=== PATIENT | female | born 1960 | race Caucasian/White ===

== ENCOUNTER 2016-11-29 15:39 | Emergency (ER) | payer MEDICARE ==
[2016-11-29 15:47] VITALS: BP 137/92
[2016-11-29] MEDS ORDERED: KETOROLAC TROMETHAMINE INJ/PF 30 MG/1 ML SDV IV ONE (15:57)
[2016-11-29] MEDS ORDERED: DIPHENHYDRAMINE HCL 50 MG/ML VIAL IV ONE (15:57)
[2016-11-29] MEDS ORDERED: NORMAL SALINE 1000 ML 1,000 ML IV ONE (15:57)
[2016-11-29] MEDS ORDERED: METOCLOPRAMIDE HCL INJ/PF 10 MG/2 ML SDV IV ONE (15:57)
--- NOTE | 2016-11-29 15:57 | ER Document Report ---
ED Headache - General Chief Complaint: Headache Stated Complaint: HEADACHE Time Seen by Provider: 11/29/16 15:50 Notes: The patient is a 56-year-old female, past medical history migraines, presents with 3 days of her usual headache that is located on the right side of her head. It started gradually and has now worsened in intensity over the past 3 days and she is now having nausea and vomited twice. She denies blurry vision, numbness, tingling, weakness, abdominal pain, fevers, neck pain, back pain, chest pain or shortness of breath. TRAVEL OUTSIDE OF THE [place] IN LAST 30 DAYS: No - Related Data Allergies/Adverse Reactions: No Known Allergies Allergy (Unverified 11/29/16 15:46) Past Medical History - General Information source: Patient - Social History Smoking Status: Current Every Day Smoker Family History: Reviewed & Not Pertinent Patient has suicidal ideation: No Patient has homicidal ideation: No Renal/ Medical History: Denies: Hx Peritoneal Dialysis Review of Systems - Review of Systems Notes: REVIEW OF SYSTEMS: CONSTITUTIONAL: -fevers, -chills EENT: -eye pain, -difficulty swallowing, -nasal congestion CARDIOVASCULAR:-chest pain, -syncope. RESPIRATORY: -cough, -SOB GASTROINTESTINAL: -abdominal pain, +nausea, +vomiting, -diarrhea GENITOURINARY: -dysuria, -hematuria MUSCULOSKELETAL: -back pain, -neck pain SKIN: -rash or skin lesions. HEMATOLOGIC: -easy bruising or bleeding. LYMPHATIC: -swollen, enlarged glands. NEUROLOGICAL: -altered mental status or loss of consciousness, +headache, - neurologic symptoms PSYCHIATRIC: -anxiety, -depression. ALL OTHER SYSTEMS REVIEWED AND NEGATIVE. Physical Exam - Vital signs Vitals: Temp Pulse Resp BP Pulse Ox 98.0 F 87 18 137/92 H 98 11/29/16 15:46 11/29/16 15:46 11/29/16 15:46 11/29/16 15:46 11/29/16 15:46 - Notes Notes: PHYSICAL EXAMINATION: GENERAL: Well-appearing, well-nourished and mild acute distress. HEAD: Atraumatic, normocephalic. EYES: Pupils equal round and reactive to light, extraocular movements intact, sclera anicteric, conjunctiva are normal. ENT: nares patent, oropharynx clear without exudates. Moist mucous membranes. NECK: Normal range of motion, supple without lymphadenopathy LUNGS: Breath sounds clear to auscultation bilaterally and equal. No wheezes rales or rhonchi. HEART: Regular rate and rhythm without murmurs ABDOMEN: Soft, nontender, normoactive bowel sounds. No guarding, no rebound. No masses appreciated. EXTREMITIES: Normal range of motion, no pitting or edema. No cyanosis. NEUROLOGICAL: Cranial nerves grossly intact. Normal speech, normal gait. Normal sensory and motor exams. PSYCH: Normal mood, normal affect. SKIN: Warm, Dry, normal turgor, no rashes or lesions noted. Course - Re-evaluation Re-evalutation: Patient headache is similar to prior headaches. Do not suspect SAH, ICH or meningitis at this time. Will treat with headache cocktail and reassess patient. 11/29/16 16:45 Pt feels much better after headache cocktail and her has completely resolved. Repeat neuro exam is completely normal. Instructed her to continue anti-inflammatories to help prevent rebound headache and follow-up with her primary care physician. - Vital Signs Vital signs: Temp Pulse Resp BP Pulse Ox 98.0 F 87 18 137/92 H 98 11/29/16 15:46 11/29/16 15:46 11/29/16 15:46 11/29/16 15:46 11/29/16 15:46 Discharge - Discharge Clinical Impression: Headache Qualifiers: Headache type: unspecified Headache chronicity pattern: chronic headache Intractability: not intractable Qualified Code(s): R51 - Headache Condition: Stable Disposition: HOME, SELF-CARE Additional Instructions: HEADACHE: The physician does not feel that the headache you are experiencing has a serious underlying cause. Most headaches are due to emotional stress, with resultant muscle tension (tension headache). Occasionally, headaches are secondary to changes in the blood vessels of the scalp (vascular headache and migraine headache). Sometimes, a headache is the first symptom of another developing illness, such as a viral infection. You have no evidence of stroke, bleeding, meningitis, or other serious cause of your headache. The treatment of headaches varies with the severity and cause of the pain. Not all headaches need pain shots. In fact, there is evidence that using narcotics for headaches may make them worse in the long run. The physician will determine the therapy that's in your best interest. If you develop a fever, if the headache is different from any you've previously experienced, or if the headache progressively worsens, then call your physician at once or go to the emergency room. REGLAN (METOCLOPRAMIDE): Reglan has been prescribed. This medicine affects the stomach and intestines. It can be used to treat nausea and vomiting, to prevent reflux of stomach acid up into the esophagus, or to increase the contractions of the stomach and intestines. It is often prescribed for esophagitis, and for paralysis of the stomach in diabetics. Reglan can cause either mild restlessness or drowsiness. You should contact the doctor at once if you become extremely restless, anxious, or cannot sleep, or if you develop uncontrollable motions of the lips, tongue, or jaw. Do not take alcohol with this medicine. Do not drive or operate machinery until you have been taking this medicine long enough to know how it affects you. Call the doctor if you develop abdominal pains, lightheadedness, black stool, or blood in the stool or vomitus. USE OF DIPHENHYDRAMINE: Diphenhydramine (Benadryl) is an antihistamine and has been recommended to help treat your headache and to prevent side effects of other medications used to treat headaches. The medication can be repeated four times daily. Age Elixir (12.5 mg/tsp) 25 mg pill adult 1-2 tabs Antihistamines may cause drowsiness, especially with the first dose. Do not operate machinery or drive while under the effects of the medication. Do not combine the medication with alcohol, or with any other medication without talking to your doctor. ANTINAUSEA MEDICATION: You have been given a medication to suppress nausea and vomiting. This type of medication can be given as a shot, pill, or suppository. It will usually last for many hours. Pills and shots usually last six to eight hours, suppositories last about 12 hours. For the typical illness, only one or two doses of the medication may be necessary. Mild lightheadedness may occur. This type of medicine can cause drowsiness. Do not drive or operate dangerous machinery while under its influence. Do not mix with alcohol. See your doctor at once if you have muscle spasms or tightness, or uncontrollable motions (particularly of the neck, mouth, or jaw). Persistent vomiting or severe lightheadedness should also be evaluated by the physician. TORADOL INJECTION: You have been given an injection of ketorolac tromethamine (Toradol). This is an excellent, safe drug for pain control. It also has potent antiinflammatory action. You should have significant pain relief within about one hour. Toradol is not addicting and is non-sedating. It does not interfere with driving or work. Call or return if you develop itching, hives, shortness of breath, or rash. FOLLOW-UP CARE: If you have been referred to a physician for follow-up care, call the physician s office for an appointment as you were instructed or within the next two days. If you experience worsening or a significant change in your symptoms, notify the physician immediately or return to the Emergency Department at any time for re-evaluation. Referrals: IRWIN VALENTIN MD [ACTIVE STAFF] - Follow up as needed
== END 2016-11-29 17:11 | disposition home or self-care (01) ==
LOC: ER 15:39
DX: R51 Headache (principal); R11.2 Nausea with vomiting, unspecified; F17.200 Nicotine dependence, unspecified, uncomplicated; Z86.69 Personal history of other diseases of the nervous system and sense organs
CPT/HCPCS: 99283; 96374; 96375; J1200; J1885; J2765; J7030

== ENCOUNTER 2017-04-17 15:05 | Emergency (ER) | payer SELFPAY ==
[2017-04-17] MEDS ORDERED: MORPHINE SULFATE 10 MG/ML INJ IV ONE (16:15)
[2017-04-17] MEDS ORDERED: IPRATROPIUM/ALBUTEROL 0.5-2.5 MG/3 ML AMPUL NEB ONE (16:15)
[2017-04-17] MEDS ORDERED: NORMAL SALINE 1000 ML 1,000 ML IV ONE (16:30)
--- NOTE | 2017-04-17 16:41 | ER Document Report ---
ED General - General Chief Complaint: Hemorrhoids Stated Complaint: COLD SYMPTOMS Time Seen by Provider: 04/17/17 15:59 Mode of Arrival: Ambulatory Information source: Patient Notes: Patient complains of cough and cold symptoms for the past 4 weeks. Patient states she is coughing so hard that it is because the hemorrhoids to flare up. Patient feels like she has had hemorrhoid pain for the past 4 weeks as well. Patient does report subjective fever at home with chills. Cough has been nonproductive. Patient does smoke although states she has been trying to cut back recently. TRAVEL OUTSIDE OF THE [place] IN LAST 30 DAYS: No - HPI Onset: Other - 4 weeks Onset/Duration: Worse Quality of pain: Sharp Pain Level: 4 Associated symptoms: Nonproductive cough, Fever, Other - Rectal pain. denies: Diarrhea, Nausea, Vomiting Exacerbated by: Coughing Relieved by: Denies Similar symptoms previously: Yes Recently seen / treated by doctor: No - Related Data Allergies/Adverse Reactions: No Known Allergies Allergy (Verified 04/17/17 15:16) Past Medical History - General Information source: Patient - Social History Smoking Status: Current Every Day Smoker Chew tobacco use (# tins/day): No Frequency of alcohol use: None Drug Abuse: None Occupation: None Lives with: Family Family History: Reviewed & Not Pertinent Patient has suicidal ideation: No Patient has homicidal ideation: No Renal/ Medical History: Denies: Hx Peritoneal Dialysis Malignancy Medical History: Reports: Hx Skin Cancer Past Surgical History: Reports: Other - Skin cancer removed from face - Immunizations Hx Diphtheria, Pertussis, Tetanus Vaccination: Yes Review of Systems - Review of Systems Constitutional: Chills, Fever EENT: No symptoms reported Cardiovascular: No symptoms reported. denies: Chest pain Respiratory: Cough. denies: Short of breath Gastrointestinal: Other - Rectal pain. denies: Vomiting Genitourinary: No symptoms reported Female Genitourinary: No symptoms reported Musculoskeletal: No symptoms reported Skin: No symptoms reported Hematologic/Lymphatic: No symptoms reported Neurological/Psychological: No symptoms reported Physical Exam - Vital signs Vitals: Temp Pulse Resp BP Pulse Ox 98.3 F 100 20 160/97 H 98 04/17/17 15:17 04/17/17 15:17 04/17/17 15:17 04/17/17 15:17 04/17/17 15:17 - General General appearance: Appears well, Alert In distress: None - HEENT Head: Normocephalic, Atraumatic Eyes: Normal Conjunctiva: Normal Nasal: Normal Mouth/Lips: Normal Mucous membranes: Dry Pharynx: Normal Neck: Normal, Supple. No: Lymphadenopathy - Respiratory Respiratory status: No respiratory distress Chest status: Nontender Breath sounds: Nonproductive cough, Rhonchi Chest palpation: Normal - Cardiovascular Rhythm: Regular Heart sounds: S1 appreciated, S2 appreciated Murmur: No - Rectal Tenderness: Yes Stool: Bloody - mucopurulent bloody drainage Hemorrhoids: External, Mass - firm, tender rectal lesion to left lateral side - Back Back: Normal, Nontender - Extremities General upper extremity: Normal inspection, Normal ROM General lower extremity: Normal inspection, Normal ROM - Neurological Neuro grossly intact: Yes Cognition: Normal Quin[place] Coma Scale Eye Opening: Spontaneous [place] Coma Scale Verbal: Oriented [place] Coma Scale Motor: Obeys Commands Rachelle Coma Scale Total: 15 - Psychological Associated symptoms: Normal affect, Normal mood - Skin Skin Temperature: Warm Skin Moisture: Dry Skin Color: Normal Course - Re-evaluation Re-evalutation: 04/17/17 16:[address] Ingram who recommends surgical consultation. Consulted with Dr. Dixon who does agree to evaluate patient in the emergency department. Does not recommend any imaging studies at this time. 04/17/17 17:42 Dr. Dixon to bedside for examination, recommends outpatient follow-up for colonoscopy and further evaluation. Recommends placing patient on Flagyl and stool softeners. Patient's findings concerning for anal rectal cancer - Vital Signs Vital signs: Temp Pulse Resp BP Pulse Ox 97.6 F 82 17 135/70 H 97 04/17/17 18:24 04/17/17 18:24 04/17/17 18:24 04/17/17 18:24 04/17/17 18:24 - Laboratory Result Diagrams: 04/17/17 16:50 04/17/17 16:50 Laboratory results interpreted by me: 04/17/17 04/17/17 16:50 16:50 WBC 11.3 H Sodium 145.6 H Chloride 108 H Carbon Dioxide 21 L BUN 5 L Creatinine 0.50 L AST 86 H ALT 188 H Alkaline Phosphatase 140 H Labs- Entire Visit 04/17/17 04/17/17 16:50 16:50 WBC 11.3 H RBC 4.57 Hgb 14.3 Hct 41.8 MCV 92 MCH 31.4 MCHC 34.3 RDW 13.8 Plt Count 296 Seg Neutrophils % 58.9 Lymphocytes % 33.0 Monocytes % 5.8 Eosinophils % 1.8 Basophils % 0.5 Absolute Neutrophils 6.7 Absolute Lymphocytes 3.7 Absolute Monocytes 0.7 Absolute Eosinophils 0.2 Absolute Basophils 0.1 Sodium 145.6 H Potassium 4.2 Chloride 108 H Carbon Dioxide 21 L Anion Gap 17 BUN 5 L Creatinine 0.50 L Est GFR ( Amer) > 60 Est GFR (Non-Af Amer) > 60 Glucose 85 Calcium 9.2 Total Bilirubin 0.5 Direct Bilirubin 0.4 Indirect Bilirubin Not Reportable Neonat Total Bilirubin Not Reportable AST 86 H ALT 188 H Alkaline Phosphatase 140 H Total Protein 8.1 Albumin 4.0 - Diagnostic Test Radiology reviewed: Reports reviewed Discharge - Discharge Clinical Impression: Elevated blood pressure reading, Rectal mass, Bronchitis Condition: Stable Disposition: HOME, SELF-CARE Instructions: Bronchitis ([facility]), Growth or Mass, Pending Workup ([facility] / [facility]) Additional Instructions: Return immediately for any new or worsening symptoms Followup with your primary care provider, call tomorrow to make a followup appointment Follow-up with Dr. Dixon for further evaluation of your rectal mass. Your mass is concerning for cancer and will need additional evaluation. Call Wednesday for an appointment time. Prescriptions: Albuterol Sulfate [Ventolin Hfa] 2 puff IH Q4HP PRN #17 gm PRN Reason: Benzonatate [Tessalon Perle 100 mg Capsule] 100 mg PO Q8HP PRN #20 cap PRN Reason: Docusate Sodium [Colace] 100 mg PO BID PRN #60 capsule PRN Reason: Lidocaine HCl [Xylocaine 2% Jelly 30 ml Tube] 1 applic TOP TID PRN #30 ml PRN Reason: Metronidazole [Flagyl 500 mg Tablet] 500 mg PO TID #30 tablet Naproxen [Naprosyn 250 Nmg Tablet] 1 tab PO BID #14 tablet Forms: Elevated Blood Pressure, Smoking Cessation Education Referrals: EMORY DIXON MD [ACTIVE STAFF] - 04/19/17 [facility] [Provider Group] - 04/19/17
--- NOTE | 2017-04-17 16:54 | RADIOLOGY REPORT (SQ) ---
EXAM DESCRIPTION: CHEST PA/LAT COMPLETED DATE/TIME: 04/17/2017 4:43 pm REASON FOR STUDY: cough COMPARISON: None. EXAM PARAMETERS: NUMBER OF VIEWS: two views TECHNIQUE: Digital Frontal and Lateral radiographic views of the chest acquired. RADIATION DOSE: NA LIMITATIONS: none FINDINGS: LUNGS AND PLEURA: No opacities, masses or pneumothorax. No pleural effusion. MEDIASTINUM AND HILAR STRUCTURES: No masses or contour abnormalities. HEART AND VASCULAR STRUCTURES: Heart normal size. No evidence for failure. BONES: No acute findings. HARDWARE: None in the chest. OTHER: No other significant finding. IMPRESSION: NO SIGNIFICANT RADIOGRAPHIC FINDING IN THE CHEST. TECHNICAL DOCUMENTATION: JOB ID: [id number] [employer]- All Rights Reserved
[2017-04-17 17:13] LABS: ABSOLUTE BASOPHILS # (AUTO) 0.1 10^3/uL (0.0-0.2); ABSOLUTE EOSINOPHILS # (AUTO) 0.2 10^3/uL (0.0-0.6); ABSOLUTE LYMPHOCYTES (AUTO) 3.7 10^3/uL (0.5-4.7); ABSOLUTE MONOCYTES (AUTO) 0.7 10^3/uL (0.1-1.4); ABSOLUTE NEUT (AUTO) 6.7 10^3/uL (1.7-8.2); BASOPHILS % (AUTO) 0.5 % (0-2); EOSINOPHILS % (AUTO) 1.8 % (0-6); HEMATOCRIT 41.8 % (36.0-47.0); HEMOGLOBIN 14.3 g/dL (12.0-15.5); HGB HCT DIFFERENCE 1.1; MEAN CORPUSCULAR HEMOGLOBIN 31.4 pg (27.0-33.4); MEAN CORPUSCULAR HGB CONC 34.3 g/dL (32.0-36.0); MEAN CORPUSCULAR VOLUME 92 fl (80-97); MONOCYTES % (AUTO) 5.8 % (3-13); RED BLOOD COUNT 4.57 10^6/uL (3.72-5.28); RED CELL DISTRIBUTION WIDTH 13.8 % (11.5-14.0); SEGMENTED NEUTROPHILS % (AUTO) 58.9 % (42-78); WHITE BLOOD COUNT 11.3 10^3/uL (4.0-10.5)
[2017-04-17] MEDS ORDERED: LIDOCAINE 2% JELLY 5 ML TUBE TOP ONE (17:26)
[2017-04-17 17:32] LABS: ALANINE AMINOTRANSFERASE 188 U/L (9-52); ALKALINE PHOSPHATASE 140 U/L (38-126); ANION GAP 17 (5-19); ASPARTATE AMINO TRANSFERASE 86 U/L (14-36); BILIRUBIN,DIRECT 0.4 mg/dL (0.0-0.4); BILIRUBIN,TOTAL 0.5 mg/dL (0.2-1.3); BLOOD UREA NITROGEN 5 mg/dL (7-20); CALCIUM 9.2 mg/dL (8.4-10.2); CARBON DIOXIDE 21 mmol/L (22-30); CHLORIDE 108 mmol/L (98-107); GLUCOSE 85 mg/dL (75-110); POTASSIUM 4.2 mmol/L (3.6-5.0); SODIUM 145.6 mmol/L (137-145); TOTAL PROTEIN 8.1 g/dL (6.3-8.2)
[2017-04-17] MEDS ORDERED: DOCUSATE SODIUM 100 MG CAPSULE PO ONE (17:53)
[2017-04-17] MEDS ORDERED: METRONIDAZOLE 500 MG TABLET PO ONE (17:53)
[2017-04-17 18:26] VITALS: BP 135/70
--- NOTE | 2017-04-17 18:58 | CONSULTATION REPORT E ---
Consultation Report NAME: CHRIS BLISS : 1960 AGE: 56Y DATE: 04/17/2017 TO: EMORY YODER M.D. FROM: Inna ROMO, Requesting Physician REASON FOR CONSULTATION: Anal mass. REPORT OF CONSULTATION: The patient is a 56-year-old white female from [place] originally, now staying in the [place] area, presents to the emergency department complaining of cold symptoms and hemorrhoids. The patient is seen in the emergency department by the physician's assistant professor of sociology where the patient underwent a rectal examination and was found to have an abnormal rectal exam, specifically a mass like effect at the anal verge. Surgery is consulted. On further questioning with the patient, she denies history of anal problems, tumors, STD, or previous colonoscopy. There is no family history of colorectal or anal cancer. She does state she has had problems with hemorrhoids in the past but has never undergone treatment. She is somewhat sketchy with her recent history in terms of symptoms, but for several weeks she has been having difficulty moving her bowels, rectal bleeding, and anal pain. PAST MEDICAL HISTORY: COPD, smoking abuse, and cervical carcinoma. PAST SURGICAL HISTORY: SCCA of the face removed. MEDICATIONS: See record. ALLERGIES: None known. SOCIAL HISTORY: The patient smokes a pack of cigarettes per day. REVIEW OF SYSTEMS: As per HPI. CONSTITUTIONAL: The patient denies. CARDIOVASCULAR: The patient has chronic cough. NEUROLOGIC: The patient denies. PHYSICAL EXAMINATION: The patient is examined [facility] Room 41. GENERAL: Awake, alert, tearful. HEENT: Eyes are without icterus. Face; general examination reveals multiple scars consistent with previous facial surgery. LUNGS: Rhonchi bilaterally. HEART: Without murmur or gallop. ABDOMEN: Soft, nontender. RECTAL: The patient rolled in the left lateral decubitus position. Perianal tissue reveals several erythematous spots that may be early abscess formation. There is a mass like effect on the right lateral aspect of the anal verge protruding from the anal canal. There is some mucopurulent discharge. Lidocaine jelly 2% was placed on the anal verge. Digitalization of anal canal revealed pain and a mass on the patient's right lateral anal canal wall. There is no george obstruction but the anal canal is narrowed somewhat. IMPRESSION: 1. 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 2. Smoker. 3. Hemorrhoids, internal on the left side. 4. COPD. 5. History of cervical carcinoma. RECOMMENDATIONS: 1. The patient will need to undergo exam under anesthesia, anal canal biopsy, in conjunction with complete colonoscopy. This can be setup on an outpatient basis and we are making arrangements for her to follow up with Dr. Yoder in [facility] next week. 2. Stool softener, Colace, and fiber. 3. Flagyl 500 mg p.o. t.i.d. I have discussed the above with the primary care team. DICTATING PHYSICIAN: EMORY YODER M.D. [id number] PHY#: [id number] ID: [id number] JOB#: [id number] ACCT: [id number] cc:EMORY YODER M.D. > MTDD
== END 2017-04-17 18:26 | disposition home or self-care (01) ==
LOC: ER 15:05
DX: K62.89 Other specified diseases of anus and rectum (principal); J40 Bronchitis, not specified as acute or chronic; R50.9 Fever, unspecified; K64.8 Other hemorrhoids; R03.0 Elevated blood-pressure reading, without diagnosis of hypertension; F17.200 Nicotine dependence, unspecified, uncomplicated; J44.9 Chronic obstructive pulmonary disease, unspecified; Z85.828 Personal history of other malignant neoplasm of skin
CPT/HCPCS: 94640; 99284; 96361; 96374; 36415; 87040; 85025; 80053; 71020; J2270; J7030; J7620

== ENCOUNTER → 2017-04-30 | Outpatient (CLI) | payer MEDICARE ==
--- NOTE | 2017-04-30 15:15 | RADIOLOGY REPORT (SQ) ---
EXAM DESCRIPTION: CT ABD/PELVIS WITH IV ORAL COMPLETED DATE/TIME: 04/30/2017 1:41 pm REASON FOR STUDY: OTHER SPEC DISEASES OF ANUS AND RECTUM (K62.89) PERSONAL HX CA OF CX AND UT K62.89 OTHER SPECIFIED DISEASES OF ANUS AND RECTUM COMPARISON: None. TECHNIQUE: CT scan of the abdomen and pelvis performed with intravenous and oral contrast using arile rosalind scanning technique with dynamic intravenous contrast injection. Images reviewed with lung, soft t issue, and bone windows. Reconstructed coronal and sagittal MPR images reviewed. Delayed images for e valuation of the urinary system also acquired. All images stored on PACS. All CT scanners at this facility use dose modulation, iterative reconstruction, and/or weight based d osing when appropriate to reduce radiation dose to as low as reasonably achievable (ALARA). [facility]: Dose Right [facility]: CareDose [facility]: Dose Right [facility]: Teradose 4D [facility]: [employer] CONTRAST TYPE AND DOSE: contrast/concentration: Isovue 370.00 mg/ml; Total Contrast Delivered: 89.0 ml; Total Saline Delivered: 70.0 ml RENAL FUNCTION: BUN 5 creatinine 0.5. RADIATION DOSE: CT Rad equipment meets quality standard of care and radiation dose reduction techniq ues were employed. CTDIvol: 7.8 - 9.1 mGy. DLP: 888 mGy-cm. . LIMITATIONS: None. FINDINGS: LOWER CHEST: No significant findings. No nodules or infiltrates. LIVER: Normal size. No masses. No dilated ducts. SPLEEN: Normal size. No focal lesions. PANCREAS: No masses. No significant calcifications. No adjacent inflammation or peripancreatic fluid collections. Pancreatic duct not dilated. GALLBLADDER: Surgically absent. ADRENAL GLANDS: 1.3 cm low-attenuation lesion in the left adrenal gland. RIGHT KIDNEY AND URETER: No solid masses. No significant calcifications. No hydronephrosis or hyd roureter. LEFT KIDNEY AND URETER: No solid masses. No significant calcifications. No hydronephrosis or hydr oureter. AORTA AND VESSELS: No aneurysm. No dissection. Renal arteries, SMA, celiac without stenosis. RETROPERITONEUM: No retroperitoneal adenopathy, hemorrhage or masses. BOWEL AND PERITONEAL CAVITY: Scattered colonic diverticuli, particularly in the sigmoid colon. No ob struction. No visualized masses. No free fluid. No inflammatory changes or thickening of bowel wall. APPENDIX: Normal. PELVIS: Slightly ill-defined low-attenuation area at the right side of the anus, nonspecific. Transv erse measurements 2.8 x 3.1 cm. Minimal stranding in the perirectal fat but no focal soft tissue les ions or adenopathy. Normal bladder. No free fluid. ABDOMINAL WALL: No masses. No hernias. BONES: No significant or acute findings. OTHER: No other significant finding. IMPRESSION: 1. NONSPECIFIC ILL-DEFINED SOFT TISSUE FULLNESS IN THE RIGHT SIDE OF THE ANUS. 2. SIGMOID DIVERTICULOSIS. NO CT FINDINGS OF ACUTE DIVERTICULITIS. 3. SMALL LOW-ATTENUATION LESION IN THE LEFT ADRENAL GLAND, PROBABLY AN ADENOMA. 4. NO OTHER SIGNIFICANT OR ACUTE FINDINGS IN THE ABDOMEN OR PELVIS. TECHNICAL DOCUMENTATION: JOB ID: [id number] Quality ID # [id number]: Final reports with documentation of one or more dose reduction techniques (e.g., Au tomated exposure control, adjustment of the mA and/or kV according to patient size, use of iterative reconstruction technique) 2010 [employer]- All Rights Reserved
== END ==
LOC: RAD 12:58
PROVIDERS: ATTEND Surgery
DX: K62.89 Other specified diseases of anus and rectum (principal); Z85.41 Personal history of malignant neoplasm of cervix uteri
CPT/HCPCS: 74177

== ENCOUNTER 2017-05-06 07:48 | Day surgery (SDC) | payer MEDICARE ==
[~2017-05-06 07:48] MED LIST: EPINEPHRINE INJ 1 MG/10 ML DISP.SYRIN ONE; FLUMAZENIL INJ 0.5 MG/5 ML VIAL ONE; GLUCAGON,HUMAN RECOMB 1 MG INJ ONE; GLYCOPYRROLATE INJ 0.4 MG/2 ML VIAL ONE; NALOXONE HCL INJ/PF 0.4 MG/1 ML SDV ONE; ONDANSETRON HCL INJ/PF 4 MG/2 ML SDV ONE
[2017-05-06] MEDS: MIDAZOLAM 2 MG/2 ML INJ ONE ×5 (09:06→09:40)
[2017-05-06] MEDS: FENTANYL CITRATE INJ/PF 100 MCG/2 ML AMPUL ONE ×4 (09:08→09:49)
--- NOTE | 2017-05-06 10:26 | PDOC DISCHARGE SUMMARY ---
Discharge Summary (SDC) - Discharge Final Diagnosis: Anal canal carcinoma Date of Surgery: 05/06/17 Discharge Date: 05/06/17 Condition: Fair Treatment or Instructions: [facility] [place] [id number] POST ENDOSCOPY DISCHARGE INSTRUCTIONS 1. Diet: Start clear liquids that a regular diet as tolerated. 2. Resume all preoperative medications. All oral anticoagulants and aspirins can be resumed 24 hours after procedure. 3. If a polypectomy was performed some bleeding per rectum may occur. This should stop within 3 days. If not, please contact the office. 4. If you had a colonoscopy you may experience some bloating and delayed return of normal bowel function for several days, your regular bowel movement pattern should resume within a week. 5. Please contact [facility] at to make an appointment with Dr. Dixon for 1 to 3 weeks following procedure. 6. If you have any questions or concerns regarding your care,treatment plan or follow up, please contact our office. 7. Patient's follow-up will be predicated on the results of her endoscopic biopsies. Discharge Diet: As Tolerated Discharge Activity: Activity As Tolerated Home Care Assistance: None Needed Report the Following to Your Physician Immediately: Shortness of Breath, Increase in Pain, Fever over 101 Degrees
--- NOTE | 2017-05-06 10:31 | Operative Report ---
Operative Report DATE OF SURGERY: 05/06/17 PREOPERATIVE DIAGNOSIS: 1. Anal canal carcinoma. 2. Need for screening colonoscopy POSTOPERATIVE DIAGNOSIS: Same upper rectal polyp OPERATION: Multiple biopsies of anal canal tumor SURGEON: EMORY YODER ANESTHESIA: Moderate Sedation TISSUE REMOVED OR ALTERED: Multiple biopsies; upper rectal polyp COMPLICATIONS: None ESTIMATED BLOOD LOSS: Minimal INTRAOPERATIVE FINDINGS: See below PROCEDURE: Obtaining informed consent the patient was taken from the preoperative holding area to the main endoscopy suite where monitoring devices were attached to the patient. Plan and surgical timeout were conducted The patient was placed in the left lateral decubitus position with knees to chest. A perianal examination was performed. The findings were significant for excoriation around the anal canal; there is a large mass 4.5 cm x 3 cm on the anal verge extending on to the perianal skin in the patient's right lateral position. By rectal exam the mass extends into the anal canal approximately 4- 5 cm mostly on the patient's right lateral anal rectal wall. This area is very tender to the patient. Extensive lubrication with lidocaine jelly 2% utilized during the procedure. In addition the patient received a total of 8 mg of Versed and 200 mcg of fentanyl for relief of the pain related to the anal canal tumor during colonoscopy. The flexible adult colonoscope was advanced through the anal rectal canal, all the way to the cecum. Utilization of the cecum was achieved and the ileocecal valve, the appendiceal orifice and transillumination of the anterior abdominal wall. This was an excellent study on the well-prepped bowel. The colonoscope was withdrawn slowly and methodically checked and the mucosa carefully. There was no evidence of tumor, stricture, bleeding; the upper rectum was a small polyp which was removed with the cold forceps biopsy. Specimen retrieved and labeled as upper rectal polyp. Bleeding from the site was negligible. There were scattered sigmoid diverticuloses. The scope was slowly withdrawn through the anal rectal canal. Complete visualization of the rectum was achieved with photodocumentation. We now performed multiple cold forceps biopsies of the anal canal tumor at multiple sites specimens were sent and as anal canal tumor. Bleeding was minimal. Patient tolerated this reasonably well but again had a significant amount of pain throughout the procedure. The scope was withdrawn to the patient's anus after multiple biopsies taken. The patient tolerated the procedure well and was taken to the recovery area in stable condition Matthieu is to await results of final pathology, and refer patient to medical oncology for further management.
[2017-05-06 11:21] VITALS: BP 129/73
[2017-05-06] MEDS ORDERED: LIDOCAINE 2% JELLY 5 ML TUBE ONE (14:36)
== END 2017-05-06 11:25 | disposition home or self-care (01) ==
LOC: END 07:48
PROVIDERS: ATTEND Surgery
PROC: 0DBP8ZX Excision of Rectum, Via Natural or Artificial Opening Endoscopic, Diagnostic (ICD-10-PCS; principal; 2017-05-06 08:15)
DX: C21.1 Malignant neoplasm of anal canal (principal); K62.1 Rectal polyp; K57.30 Diverticulosis of large intestine without perforation or abscess without bleeding; J44.9 Chronic obstructive pulmonary disease, unspecified; Z79.899 Other long term (current) drug therapy; Z85.41 Personal history of malignant neoplasm of cervix uteri; Z85.828 Personal history of other malignant neoplasm of skin; F17.200 Nicotine dependence, unspecified, uncomplicated
CPT/HCPCS: 45380; 88305 ×2; J2250; J3010; J1610; J0171; J2310; J2405; J3490

== ENCOUNTER → 2017-05-30 | Outpatient (CLI) | payer MEDICARE ==
--- NOTE | 2017-06-01 11:39 | RADIOLOGY REPORT (SQ) ---
EXAM DESCRIPTION: PET CT SKULL/THIGH COMPLETED DATE/TIME: 05/30/2017 8:46 pm REASON FOR STUDY: MALIGNANT NEOPLASM OF ANUS C21.0 MALIGNANT NEOPLASM OF ANUS, UNSPECIFIED COMPARISON: CT abdomen pelvis dated 04/30/2017. RADIONUCLIDE AND DOSE: 10.0 mCi F18 FDG The route of agent administration: Intravenous FASTING BLOOD SUGAR: 102 mg/dl CONTRAST TYPE AND DOSE: No CT contrast given. TECHNIQUE: Blood glucose level was verified. Above dose of FDG was injected intravenously. 2-D seg mented attenuation correction images were obtained from the base of the skull to the midthighs. Nonc ontrast CT images were obtained for attenuation correction and fusion with emission images. CT image s were performed without oral or intravenous contrast and are not sensitive for parenchymal lesions. A series of overlapping emission PET images were obtained. Images reviewed and manipulated at [facility] work station by the radiologist. Images stored on PACS. LIMITATIONS: None. FINDINGS: HEAD AND NECK: No areas of abnormal metabolic activity in the soft tissues of the head and neck. CHEST: No areas of abnormal metabolic activity in the chest. ABDOMEN AND PELVIS: No areas of abnormal metabolic activity in the abdomen. Expected physiologic act ivity is present in the genitourinary system and bowel. There is ill-defined soft tissue in the dist al rectum extending to the anus. Maximum transverse measurement approximately 4.5 cm. SUV values ra nge from 13.45 to 17.44. There is a lymph node along the right pelvic wall just anterior to the righ t sacroiliac joint (series 3, image 203). This measures 1.5 cm. Mean SUV value 4.05. PROXIMAL LOWER EXTREMITIES: No areas of abnormal metabolic activity in the soft tissues of the lower extremities. BONES: There is generally diffuse slightly increased metabolic activity throughout the vertebral bodi es with no bony abnormalities on current or previous CT scan. ADDITIONAL CT FINDINGS: No additional significant findings on the noncontrast CT images. OTHER: No other significant findings. IMPRESSION: 1. ILL-DEFINED SOFT TISSUE MASS IN THE DISTAL RECTUM AND ANUS SECONDARY TO KNOWN MALIGNANCY. THERE I S A SINGLE ENLARGED LYMPH NODE ALONG THE RIGHT PELVIC WALL WITH INCREASED METABOLIC ACTIVITY CONSISTE NT WITH METASTATIC ADENOPATHY. 2. GENERALLY DIFFUSE SLIGHTLY INCREASED METABOLIC ACTIVITY THROUGHOUT THE VERTEBRAL BODIES WITH NO [place] ABNORMALITIES ON CT SCAN. THIS MAY BE DUE TO PRESENCE OF RED MARROW. METASTATIC INVOLVEMENT UNLI LOIDA. 3. NO OTHER SIGNIFICANT FINDINGS. TECHNICAL DOCUMENTATION: JOB ID: [id number] [employer]- All Rights Reserved
== END ==
LOC: RAD 18:08
PROVIDERS: ATTEND Radiology Radiation Oncology
DX: C21.0 Malignant neoplasm of anus, unspecified (principal)
CPT/HCPCS: 78815; A9552

== ENCOUNTER 2017-06-02 14:33 | Day surgery (SDC) | payer MEDICARE ==
[2017-06-02] MEDS ORDERED: CEFAZOLIN 1 GM/D5W RTU 1 GM/50 ML RTUPB IV ONE (14:58)
[2017-06-02] MEDS ORDERED: BUPIVACAINE HCL 0.25% /EPINEPHRINE INJ/PF 30 ML SDV ONE ×2 (15:07→16:50)
[2017-06-02] MEDS ORDERED: PROPOFOL INJ 200 MG/20 ML VIAL IV ONE (15:34)
[2017-06-02] MEDS ORDERED: MIDAZOLAM 2 MG/2 ML INJ ONE ×2 (15:34)
[2017-06-02 15:46] LABS: HEMATOCRIT 40.7 % (36.0-47.0); MEAN CORPUSCULAR HGB CONC 34.3 g/dL (32.0-36.0); MEAN CORPUSCULAR VOLUME 90 fl (80-97); PLATELET COUNT 311 10^3/uL (150-450); RED BLOOD COUNT 4.51 10^6/uL (3.72-5.28); RED CELL DISTRIBUTION WIDTH 13.2 % (11.5-14.0); WHITE BLOOD COUNT 12.4 10^3/uL (4.0-10.5)
[2017-06-02] MEDS ORDERED: FENTANYL CITRATE INJ/PF 100 MCG/2 ML AMPUL IV PRN ×3 (16:31)
[2017-06-02] MEDS ORDERED: DIPHENHYDRAMINE HCL 50 MG/ML VIAL IV PRN (16:31)
[2017-06-02] MEDS ORDERED: PROMETHAZINE HCL INJ 25 MG/1 ML VIAL IV PRN ×2 (16:31)
[2017-06-02] MEDS ORDERED: MORPHINE SULFATE 10 MG/ML INJ IV PRN (16:31)
[2017-06-02] MEDS ORDERED: OXYCODONE-ACETAMINOPHEN 5-325 MG TABLET PO PRN ×2 (16:31)
[2017-06-02] MEDS ORDERED: MEPERIDINE HCL/PF INJ 25 MG/1 ML DISP.SYRIN IV PRN (16:31)
--- NOTE | 2017-06-02 17:06 | PDOC DISCHARGE SUMMARY ---
Discharge Summary (SDC) - Discharge Final Diagnosis: Anal carcinoma Date of Surgery: 06/02/17 Discharge Date: 06/02/17 Condition: Good Forms: ASU Anesthesia D/C Instruction, Discharge POC-Surgical Service Referrals: EMORY YODER MD [ACTIVE STAFF] - 06/17/17 1:30 pm Discharge Diet: As Tolerated Discharge Activity: Activity As Tolerated Home Care Assistance: None Needed Report the Following to Your Physician Immediately: Shortness of Breath, Increase in Pain, Fever over 101 Degrees
--- NOTE | 2017-06-02 17:13 | Operative Report ---
Operative Report DATE OF SURGERY: 06/02/17 PREOPERATIVE DIAGNOSIS: Anal carcinoma POSTOPERATIVE DIAGNOSIS: Same OPERATION: 1. Focused ultrasound of the right neck. 2. Placement of right subclavian single lumen portacatheter. 3. Interpretation of intraoperative fluoroscopy. SURGEON: EMORY YODER ANESTHESIA: LMAC TISSUE REMOVED OR ALTERED: None COMPLICATIONS: None ESTIMATED BLOOD LOSS: Scant INTRAOPERATIVE FINDINGS: See below PROCEDURE: The patient was seen in the preop holding area with the right neck and chest wall were marked. She was then taken to the main operating room where LMAC anesthesia was induced. Arms tucked to the side. The right side of the neck, chest wall prepped and draped in sterile fashion with Betadine Surgical plan surgical timeout were conducted. The right neck was exposed, with the IJ scanned with a variable frequency linear transducer. The vein was felt to be suitable cannulation. Skin was anesthetized with quarter percent Marcaine. A brendon was made in the skin line the vein, and using the ultrasound as a guide, the needle and wire were threaded into the right internal jugular vein. Under fluoroscopic examination however the wire appeared to be more actually located on the patient. Suitable site for placement of the port was chosen in the right subclavian area. Skin was anesthetized 1% lidocaine. A 2 and half centimeter incision made with the knife underlying tissue opened up with blunt dissection and electrocautery. The catheter was then trimmed the appropriate length, tunneled between the 2 incisions and the port tucked into the pocket. We now plan to switch the micro wire over to the conventional wire so the micro introducer sheath was threaded over the wire. When the dilator and wire removed , there was arterial blood emanating from the mini catheter so the catheter was removed immediately from the right neck and pressure held. We regrouped. The patient had no evidence of respiratory distress. I rescan the right neck and there was significant hematoma between the right internal jugular vein, and the carotid artery suggestive of extravasation of blood. The right internal jugular vein lumen caliber was compromised. Therefore I did not feel the right IJ was suitable for further attempts at cannulation. Therefore the right side of the neck was aborted. Using my right subclavian incision for the port pocket creation, use this to access the right subclavian vein with the 18-gauge needle and Glidewire. This did require several attempts at puncture but eventually we were successful. The previously tunneled catheter was removed, trimmed to appropriate length. The dilator and introducer sheath were threaded over the wire, Glidewire and dilator removed, and the trimmed catheter threaded into the introducer sheath. All of this is performed under fluoroscopic guidance. The strip away sheath was removed leaving the tip of the catheter in the deep superior vena cava right atrial region. There was no kinking of the catheter. The catheter aspirated and flushed beautifully. It was flushed with heparinized saline. Can continue to do well clinically. All wounds closed with 3-0 Vicryl benzoin Steri-Strips. Patient was taken to recovery room in stable condition. Portable upright chest x-ray pending at time dictation.
--- NOTE | 2017-06-02 17:20 | RADIOLOGY REPORT (SQ) ---
EXAM DESCRIPTION: FLUORO/CV PLACEMENT COMPLETED DATE/TIME: 06/02/2017 5:12 pm REASON FOR STUDY: PORTACATH C44.520 SQUAMOUS CELL CARCINOMA OF ANAL SKIN COMPARISON: None. FLUOROSCOPY TIME: 1.2 minutes 5 images saved to PACS. TECHNIQUE: Intra-operative images acquired during surgical procedure to evaluate progress. NUMBER OF IMAGES: 5 LIMITATIONS: None. FINDINGS: Placement of central venous access catheter. Tip in expected location. IMPRESSION: IMAGE(S) OBTAINED DURING PROCEDURE. COMMENT: Quality ID [id number]: Final reports for procedures using fluoroscopy that document radiation exp osure indices, or exposure time and number of fluorographic images (if radiation exposure indices are not available) Please consult full operative report of the attending physician for description of the procedure. TECHNICAL DOCUMENTATION: JOB ID: [id number] [employer]- All Rights Reserved
--- NOTE | 2017-06-02 17:44 | RADIOLOGY REPORT (SQ) ---
EXAM DESCRIPTION: CHEST SINGLE VIEW COMPLETED DATE/TIME: 06/02/2017 5:35 pm REASON FOR STUDY: Status s post a right sided port placement COMPARISON: None. EXAM PARAMETERS: NUMBER OF VIEWS: One view. TECHNIQUE: Single frontal radiographic view of the chest acquired. RADIATION DOSE: NA LIMITATIONS: None. FINDINGS: LUNGS AND PLEURA: No opacities, masses or pneumothorax. No pleural effusion. MEDIASTINUM AND HILAR STRUCTURES: No masses. Contour normal. HEART AND VASCULAR STRUCTURES: Heart normal in size. Normal vasculature. BONES: No acute findings. HARDWARE: Venous access catheter tip at the SVC. OTHER: No other significant finding. IMPRESSION: Venous access catheter tip SVC. No pneumothorax. TECHNICAL DOCUMENTATION: JOB ID: [id number] [employer]- All Rights Reserved
[2017-06-02 19:03] VITALS: BP 124/67
== END 2017-06-02 19:05 | disposition home or self-care (01) ==
LOC: OROUT 14:33
PROVIDERS: ATTEND Surgery
PROC: 05H533Z Insertion of Infusion Device into Right Subclavian Vein, Percutaneous Approach (ICD-10-PCS; principal; 2017-06-02 16:30)
DX: C44.520 Squamous cell carcinoma of anal skin (principal); J44.9 Chronic obstructive pulmonary disease, unspecified; F17.210 Nicotine dependence, cigarettes, uncomplicated; Z85.828 Personal history of other malignant neoplasm of skin; Z85.41 Personal history of malignant neoplasm of cervix uteri; Z79.899 Other long term (current) drug therapy; Z79.51 Long term (current) use of inhaled steroids; Z79.1 Long term (current) use of non-steroidal anti-inflammatories (NSAID)
CPT/HCPCS: 36561; 36415; 85027; 71045; 77001; C1769; C1752; C1788; J2250; J3490; J0690; A9270; J2704; J1642; 532

== ENCOUNTER 2017-06-08 09:58 | Outpatient (CLI) | payer MEDICARE ==
[~2017-06-08 09:58] MED LIST changes: +CONTAINER EMPTY IV PRN; +DEXAMETHASONE SOD PHOS INJ 10 MG/1 ML VIAL IV PRN; -EPINEPHRINE INJ 1 MG/10 ML DISP.SYRIN ONE; -FLUMAZENIL INJ 0.5 MG/5 ML VIAL ONE; +FLUOROURACIL IV PRN; -GLUCAGON,HUMAN RECOMB 1 MG INJ ONE; -GLYCOPYRROLATE INJ 0.4 MG/2 ML VIAL ONE; +MITOMYCIN IV PRN; -NALOXONE HCL INJ/PF 0.4 MG/1 ML SDV ONE; +NORMAL SALINE 250 ML IV PRN; +NORMAL SALINE IV PRN; -ONDANSETRON HCL INJ/PF 4 MG/2 ML SDV ONE
[2017-06-08 10:36] LABS: ABSOLUTE BASOPHILS # (AUTO) 0.1 10^3/uL (0.0-0.2); ABSOLUTE EOSINOPHILS # (AUTO) 0.3 10^3/uL (0.0-0.6); ABSOLUTE LYMPHOCYTES (AUTO) 2.1 10^3/uL (0.5-4.7); ABSOLUTE MONOCYTES (AUTO) 0.6 10^3/uL (0.1-1.4); ABSOLUTE NEUT (AUTO) 6.1 10^3/uL (1.7-8.2); BASOPHILS % (AUTO) 0.8 % (0-2); EOSINOPHILS % (AUTO) 3.6 % (0-6); HEMATOCRIT 36.2 % (36.0-47.0); HEMOGLOBIN 12.2 g/dL (12.0-15.5); LYMPHOCYTES % (AUTO) 22.7 % (13-45); MEAN CORPUSCULAR HEMOGLOBIN 30.7 pg (27.0-33.4); MEAN CORPUSCULAR HGB CONC 33.7 g/dL (32.0-36.0); MEAN CORPUSCULAR VOLUME 91 fl (80-97); PLATELET COUNT 367 10^3/uL (150-450); RED BLOOD COUNT 3.98 10^6/uL (3.72-5.28); RED CELL DISTRIBUTION WIDTH 13.8 % (11.5-14.0); SEGMENTED NEUTROPHILS % (AUTO) 65.9 % (42-78); TOTAL CELLS COUNTED % (AUTO) 100 %; WHITE BLOOD COUNT 9.2 10^3/uL (4.0-10.5)
[2017-06-08 10:39] VITALS: BP 122/70
== END 2017-06-08 13:18 | disposition home or self-care (01) ==
LOC: II 09:58 → 5TH 10:00 → II 13:18
PROVIDERS: ATTEND Internal Medicine Hematology & Oncology
PROC: 3E04305 Introduction of Other Antineoplastic into Central Vein, Percutaneous Approach (ICD-10-PCS; principal; 2017-06-08)
PROC: 3E0433Z Introduction of Anti-inflammatory into Central Vein, Percutaneous Approach (ICD-10-PCS; 2017-06-08)
DX: Z51.11 Encounter for antineoplastic chemotherapy (principal); C21.0 Malignant neoplasm of anus, unspecified
CPT/HCPCS: 36415; 85025; 96413; 96416; 96375; A9270; J9190; J9280; J7040; J1100; 96411; J3490

== ENCOUNTER 2017-07-19 08:43 | Outpatient (CLI) | payer MEDICARE ==
[~2017-07-19 08:43] MED LIST changes: +NORMAL SALINE 10 ML SDV (AFTER EACH USE) IV PRN
[2017-07-19 09:19] VITALS: BP 98/52
== END 2017-07-19 10:26 | disposition home or self-care (01) ==
LOC: II 08:43 → 5TH 08:44 → II 10:26
PROVIDERS: ATTEND Internal Medicine Hematology & Oncology
PROC: 3E04305 Introduction of Other Antineoplastic into Central Vein, Percutaneous Approach (ICD-10-PCS; principal; 2017-07-19)
PROC: 3E0433Z Introduction of Anti-inflammatory into Central Vein, Percutaneous Approach (ICD-10-PCS; 2017-07-19)
DX: Z51.11 Encounter for antineoplastic chemotherapy (principal); C21.0 Malignant neoplasm of anus, unspecified
CPT/HCPCS: 96413; 96415; 96367; 96374; A9270; J9190; J9280; J7040; J1100; 96375; 96416; J3490

== ENCOUNTER 2017-07-28 11:32 | Outpatient (CLI) | payer MEDICARE ==
[2017-07-28] MEDS ORDERED: NORMAL SALINE 1000 ML 1,000 ML IV PRN (11:42)
[2017-07-28 11:56] VITALS: BP 111/69
== END 2017-07-28 13:34 | disposition home or self-care (01) ==
LOC: II 11:32 → 5TH 11:37 → II 13:34
PROVIDERS: ATTEND Internal Medicine
PROC: 3E0437Z Introduction of Electrolytic and Water Balance Substance into Central Vein, Percutaneous Approach (ICD-10-PCS; principal; 2017-07-28)
DX: E86.0 Dehydration (principal); C21.0 Malignant neoplasm of anus, unspecified
CPT/HCPCS: 96360; 96374

== ENCOUNTER 2018-01-05 06:14 | Day surgery (SDC) | payer MEDICARE ==
--- NOTE | 2017-12-31 18:16 | EKG REPORT ---
SEVERITY:- ABNORMAL ECG - SINUS RHYTHM CONSIDER LEFT VENTRICULAR HYPERTROPHY : Confirmed by: Lucy Herron 31-Dec-2017 18:16:00
[~2018-01-05 06:14] MED LIST changes: -CONTAINER EMPTY IV PRN; -DEXAMETHASONE SOD PHOS INJ 10 MG/1 ML VIAL IV PRN; -FLUOROURACIL IV PRN; +LACTATED RINGERS 1000 ML IV PRN; +LIDOCAINE 0.5% INJ-PF (5 MG/ML) 50 ML SDV SUBCUT PRN; -MITOMYCIN IV PRN; -NORMAL SALINE 10 ML SDV (AFTER EACH USE) IV PRN; -NORMAL SALINE 250 ML IV PRN; -NORMAL SALINE IV PRN
[2018-01-05] MEDS ORDERED: PROPOFOL INJ 200 MG/20 ML VIAL IV ONE (06:41)
[2018-01-05] MEDS ORDERED: FENTANYL CITRATE INJ/PF 100 MCG/2 ML AMPUL IV PRN ×3 (09:01)
[2018-01-05] MEDS ORDERED: MEPERIDINE HCL/PF INJ 25 MG/1 ML DISP.SYRIN IV PRN (09:01)
[2018-01-05] MEDS ORDERED: DIPHENHYDRAMINE HCL 50 MG/ML VIAL IV PRN (09:01)
[2018-01-05] MEDS ORDERED: PROMETHAZINE HCL INJ 25 MG/1 ML VIAL IV PRN ×2 (09:01)
[2018-01-05] MEDS ORDERED: OXYCODONE-ACETAMINOPHEN 5-325 MG TABLET PO PRN (09:43)
--- NOTE | 2018-01-05 09:43 | Discharge Summary ---
Discharge Summary (SDC) - Discharge Final Diagnosis: squamous cell carcinoma of anus Date of Surgery: 01/05/18 Discharge Date: 01/05/18 Condition: Stable Treatment or Instructions: [facility] [address] [place] [id number] Hemorrhoid or Anal Surgery Discharge Instructions 1. General Information: a. DO NOT DRIVE a car or operate dangerous machinery for 4-7 days. b. DO NOT consume alcohol, tranquilizers, sleeping medications or any non- prescribed medications for 24 hours unless approved by your doctor or as long as taking narcotic prescription medications. c. DO NOT make important decisions or sign any important papers for the next 24 hours. d. Have a responsible person with you tonight. 2. Activity Restrictions: 2 weeks a. Avoid heavy lifting or straining until you feel more comfortable. b. It is fine to go for walks, up and down steps, ride in a car. 3. Treatment: a. Tomorrow morning begin warm water sitz baths (soaks) with plain water. You may do 3-4 times per day or after bowel movements to help relieve spasm and pain. Place a dry gauze or panty liner over the sight to catch drainage and blood to help keep your clothing dry. b. You may use Tucks or other medicated wipes to help clean the area as needed. 4. Medications: a. Resume all normal medications unless a change is specified by your doctors. b. Stool softeners are encouraged to help you for 2-4 weeks to maintain a soft stool and avoid more painful bowel movements due to pain medication. Colace is often used. c. A numbing cream may be prescribed, this can be applied after sitz baths around the perianal area before the sight is covered with a gauze pad. d. Constipation is very common after anal surgery and you may take over-the- counter medications to help stimulate the bowel such as Milk of Magnesia, Senokot tablets, prune juice and drink plenty of water. 5. Diet: a. Begin with clear liquids and if you do well you may then advance to normal foods low in fat and protein at first. Smaller portion size may be john the first night. b. Acidic (orange juice, tomato), foods high in ruffage (grapes, celery, asparagus) and spicy foods should be avoided for comfort the first 2-3 weeks since they can cause more burning sensation with bowel movements. 6..Follow Up Care: a. Please call the office to schedule a follow up appointment with your doctor for 2 weeks. In the event of any postoperative problems or questions or you may call the office during business hours or the On-Call physician evenings and weekends at [facility]. [facility] I understand the instructions for my postoperative care as described above and a copy has been given to me. Patient/Significant Other Witness Date Referrals: TIMOTHY COLBY MD [Primary Care Provider] - Discharge Diet: As Tolerated Discharge Activity: No Lifting Over 10 Pounds, No Lifting/Push/Pulling, Walk Frequently Report the Following to Your Physician Immediately: Fever over 101 Degrees, Unusual Bleeding, Redness, Swelling, Drainage-Foul Smelling
--- NOTE | 2018-01-05 09:50 | Operative Report ---
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 Examination under anesthesia. 2. Flexible colonoscopy to 30 cm from the anal verge. 3. Anoscopy, with multiple excisional biopsies of residual mass right lateral anal canal SURGEON: EMORY YODER 1ST RAGMAN: RAFAT MAYS ANESTHESIA: LMAC TISSUE REMOVED OR ALTERED: Portions of right anal canal mass COMPLICATIONS: None ESTIMATED BLOOD LOSS: Minimal INTRAOPERATIVE FINDINGS: See below PROCEDURE: The patient was taken to the preop holding her to the main operating room where she placed in supine position, legs placed in stirrups, and appropriate level of LMAC anesthesia was induced. Surgical plan surgical timeout conducted. Perianal examination revealed 3 small partially thrombosed skin masses between the 10:00 and 6 o'clock position right lateral and right posterior anal canal. Clinically these appeared to be consistent with hemorrhoids. Surfaces were smooth, and underlying subcutaneous tissue spongy. Anal exam by palpation revealed a illness, approximately 3-4 cm in length and diameter extending from the 6 to the 12 o'clock position just from the anal verge to the dentate line and slightly proximally. At approximately 9 o'clock position was a depression consistent with loss of mucosal integrity. We performed a flexible colonoscopy to approximately 30 cm due to the nearly incomplete bowel prep. The mucosa appeared unremarkable, and there were no masses or residual polyps again up to 30 cm from the anal verge. The scope was withdrawn slowly then readvanced each time irrigating and suctioning out residual stool. With the flexible evaluation complete, I now dilated the anal canal up to admit to adult fingers. The anal canal was somewhat stenotic after an index finger was inserted. However dilatation was successful, and there was no evidence of abrasion or tear to the anal canal mucosa. I inserted the bullet anoscope into position, and rotated it circumferentially. The aforementioned pathology was appreciated from the 6 to the 9 o'clock position. The other sections of the anal canal appeared to be grossly and endoscopically free of pathology. I proceeded to take fragmented biopsies of the 9 o'clock position which included the cavitated area. This was performed with a #15 blade. All specimen fragments were sent into the same container. The defect was closed with a running 4-0 chromic suture. Bleeding was minimal. The patient tolerated the procedure reasonably well and I did not feel additional biopsy was indicated given the high likelihood of residual cancer right lateral position. Furthermore the bowel prep was grossly inadequate. Patient tolerated procedure well and was taken to recovery room in stable condition.
[2018-01-05] MEDS ORDERED: FENTANYL CITRATE INJ/PF 100 MCG/2 ML AMPUL ONE (09:59)
[2018-01-05 13:15] VITALS: BP 126/78
== END 2018-01-05 12:15 | disposition home or self-care (01) ==
LOC: OROUT 06:14
PROVIDERS: ATTEND Surgery
DX: C21.1 Malignant neoplasm of anal canal (principal); F17.210 Nicotine dependence, cigarettes, uncomplicated; J44.9 Chronic obstructive pulmonary disease, unspecified; Z79.891 Long term (current) use of opiate analgesic; Z79.899 Other long term (current) drug therapy; Z79.51 Long term (current) use of inhaled steroids; Z85.828 Personal history of other malignant neoplasm of skin; Z85.41 Personal history of malignant neoplasm of cervix uteri
CPT/HCPCS: 45331; 93005; 88342 ×2; 88305 ×2; 93010; J3010; J2704; 811

== ENCOUNTER → 2018-02-03 | Outpatient (CLI) | payer MEDICARE ==
--- NOTE | 2018-02-03 14:51 | RADIOLOGY REPORT (SQ) ---
EXAM DESCRIPTION: CT ABD/PELVIS WITH IV ONLY; CT CHEST WITH COMPLETED DATE/TIME: 02/03/2018 1:44 pm REASON FOR STUDY: ANUS CA (C21.0) C21.0 MALIGNANT NEOPLASM OF ANUS, UNSPECIFIED COMPARISON: CT abdomen pelvis 04/30/2017 PET-CT 05/30/2017 CONTRAST TYPE AND DOSE: contrast/concentration: Isovue 350.00 mg/ml; Total Contrast Delivered: 57.0 ml; Total Saline Delivered: 65.0 ml RENAL FUNCTION: Creatinine 0.9 TECHNIQUE: CT scan of the chest performed using helical scanning technique with dynamic intravenous contrast injection. Images reviewed with lung, soft tissue and bone windows. Reconstructed coronal a nd sagittal MPR images reviewed. All images stored on PACS. CT scan of the abdomen and pelvis performed with intravenous and without oral contrastusing helical s wesley technique with dynamic intravenous contrast injection. Images reviewed with lung, soft tissu e and bone windows. Reconstructed coronal and sagittal MPR images reviewed. Delayed images for eval uation of the urinary system also acquired and evaluated. All images stored on PACS. All CT scanners at this facility use dose modulation, iterative reconstruction, and/or weight based d osing when appropriate to reduce radiation dose to as low as reasonably achievable (ALARA). [facility]: Dose Right [facility]: CareDose [facility]: Dose Right [facility]: Teradose 4D [facility]: [place] RADIATION DOSE: CT Rad equipment meets quality standard of care and radiation dose reduction techniq ues were employed. CTDIvol: 4.4 - 4.5 mGy. DLP: 888 mGy-cm. . LIMITATIONS: None. FINDINGS: CHEST: LUNGS AND PLEURA: No opacities, nodules, masses. No pneumothorax. No effusions. Advanced changes of obstructive lung disease. HILAR AND MEDIASTINAL STRUCTURES: No identified masses or abnormal nodes. HEART AND VASCULAR STRUCTURES: No aneurysm or dissection. No central pulmonary emboli. No pericardi al effusion. HARDWARE: Right-sided permanent central line tip superior vena cava THYROID AND OTHER SOFT TISSUES: No masses. No adenopathy. BONES: No significant finding. OTHER: No other significant finding. ABDOMEN AND PELVIS: LIVER: Normal size. No masses. No dilated ducts. SPLEEN: Normal size. No focal lesions. PANCREAS: No masses. No significant calcifications. No adjacent inflammation or peripancreatic fluid collections. Pancreatic duct not dilated. GALLBLADDER: Surgically absent ADRENAL GLANDS: Right adrenal gland unremarkable. 1.6 cm left adrenal adenoma RIGHT KIDNEY AND URETER: No solid masses. No significant calcification. No hydronephrosis or hydroure ter. LEFT KIDNEY AND URETER: No solid masses. No significant calcification. No hydronephrosis or hydrouret er. AORTA AND VESSELS: No aneurysm. No dissection. Renal arteries, SMA, celiac without stenosis. RETROPERITONEUM: No retroperitoneal adenopathy, hemorrhage or masses. BOWEL AND PERITONEAL CAVITY: No oral contrast. No CT evidence of bowel obstruction or free intraperi toneal air or fluid. There is asymmetric right lateral rectal wall thickening 1.2 cm in thickness on axial image 73. This correlates with the area of tumor identified on PET-CT 05/30/2017 which measured 1.7 cm in greatest thickness at that time. The right pelvic lymph node near the sacroiliac joint described 05/30/2017 is no longer identified. APPENDIX: Not well visualized. No right lower quadrant inflammatory change. ABDOMINAL WALL: No masses. No hernias. PELVIS: Asymmetric rightward lateral rectal wall thickening. Bladder, uterus, postmenopausal ovaries unremarkable BONES: No significant or acute findings. OTHER: No other significant finding. IMPRESSION: Obstructive lung disease. Post cholecystectomy. Left adrenal adenoma. Persistent asymmetric rightward lateral rectal wall thickening, correlates with tumor seen on PET-CT 05/30/2017. Right pelvic lymph node near the right SI joint seen on PET-CT 05/30/2017 no longer identified. TECHNICAL DOCUMENTATION: JOB ID: [id number] Quality ID # [id number]: Final reports with documentation of one or more dose reduction techniques (e.g., Au tomated exposure control, adjustment of the mA and/or kV according to patient size, use of iterative reconstruction technique) 2010 [employer]- All Rights Reserved Reading location - IP/workstation name: [email or web address]
== END ==
LOC: RAD 13:08
PROVIDERS: ATTEND Internal Medicine Hematology & Oncology
DX: C21.0 Malignant neoplasm of anus, unspecified (principal)
CPT/HCPCS: 71260; 74177; 82565